=== PATIENT | female | born 2000 | race Caucasian/White ===

== ENCOUNTER 2025-04-30 11:39 | Emergency (ER) | payer SELFPAY ==
[2025-04-30] VITALS (10 sets, daily range): BP systolic 111–148; BP diastolic 55–94; PULSE 69–852; RESP 13–18; TEMP 36.7–36.9; O2SAT 96–100; BMI 43.9
--- NOTE | ~2025-04-30 | US_ITS ---
EXAMINATION: US OBSTETRICAL ULTRASOUND CLINICAL INFORMATION: Status post miscarriage with bleeding. 24-year-old female. History of 2 ectopic pregnancies since tubal ligation. COMPARISON: None available. LMP: Unknown.. TECHNIQUE: Ultrasound of the maternal pelvis is performed using transabdominal and transvaginal transducers. Transvaginal imaging is performed due to inadequate visualization transabdominally. FINDINGS: The uterus measures 10.4 x 4.1 cm in sagittal plane. A transverse diameter was not measured. The endometrium appears thickened and somewhat irregular, measuring 13 mm. This likely on the basis of blood products as there is no vascularity associated. No gestational sac is evident. No evidence of decidual reaction. No gross myometrial abnormalities. No masses. The cervix is unremarkable. MATERNAL ADNEXA: The right maternal ovary measures 4.7 x 2.1 x 2.2 cm. Normal sonographic appearance. The left maternal ovary measures 3.9 x 2.2 x 2.3 cm. There is a corpus luteal cyst measuring 2.2 x 1.4 x 1.5 cm. There is no significant maternal adnexal mass. No maternal pelvic ascites. US/US OB pelvic and transvaginal IMPRESSION: 1. Thickened endometrium likely represent blood products measuring up to 13 mm. No evidence of gestational sac or IUP. 2. No myometrial abnormalities. 3. Normal-appearing ovaries without adnexal masses. No evidence of ectopic . 4. No significant pelvic ascites present. Electronically signed by: Dom Ladd MD 04/30/2025 01:22 PM [facility]
[2025-04-30 12:21] LABS: Appearance Urine Clear; Glucose Urine UA Negative (Negative); PH 6.0 (5.0-9.0); Specific Gravity - Urine 1.025 (1.005-1.025); UMIC TRIGGER UACC YES
--- NOTE | 2025-04-30 12:25 | ED_ITS ---
HPI - Female Genitourinary General Chief complaint: Vaginal Bleeding Stated complaint: MISCAR LAST WK/VAG BLEED,SMOKED CRACK/WANTS DETOX Time Seen by Provider: 04/30/25 11:42 Source: patient and EMS Mode of arrival: EMS Limitations: no limitations History of Present Illness ED Provider: HPI Narrative: 24-year-old woman from [place], has been in [facility] for the past 4 days visiting her friend, she states for the past 4 days she has been using crack cocaine including this morning and yesterday use some type of the substance that made her feel nauseated and states since then has had decreased p.o. intake, does not typically use opiates, states has not really use crack cocaine for the past 10 years but under lot of stress and she is experiencing homelessness, she reports that a proximally 1-1/2-2 weeks ago she has had a miscarriage she passed what she thought as products of conception, unsure of how far along she was at that point, and states that has been having vaginal bleeding initially it stopped but then restarted 3 days ago and states that she is passing heavy clots in sure if she is having a normal. It is heavier than usual, reports history of diabetes and hypotension and has not been using her medications in some time as well. No SI or HI, does have history of self cutting last time when she was 16 years old. Interested in detox, gave this provider crack pipe along with what was likely small tube of fentanyl. Related Data Previous Rx's ?Medication ?Instructions ?Recorded cephalexin 500 mg capsule 500 mg PO BID 7 days #14 cap s 04/30/25 ferrous sulfate 325 mg (65 mg 325 mg PO DAILY #30 tabs 04/30/25 iron) tablet (iron) medroxyprogesterone 10 mg tablet 10 mg PO DAILY 7 days #7 tabs 04/30/25 (Provera) Allergies Allergy/AdvReac Type Severity Reaction Status Date / Time ondansetron (From Zofran) Allergy Anaphylaxis Verified 04/30/25 12:04 Review of Systems 2 Constitutional: Constitutional: Reports as per [facility] Past Medical History Medical History (Updated 04/30/25 @ 14:30 by Tavo Franco MD) Hypertension Diabetes type 2 History of PID History of ectopic Surgical History (Updated 04/30/25 @ 14:30 by Tavo Franco MD) History of tubal ligation Social History Social History Alcohol intake: current Alcohol intake frequency: 3 or more drinks per day Smoked in Last 30 Days: Yes Use of substances other than those prescribed or required for medical reasons: Yes Substance Use Type: Crack/Cocaine Substance Use Frequency: Recent Binge Last Used Substance: Days (ago) Advance Directives: No Advance Directives Information Provided: No Physical Exam 2 Exam: Exam: ?General: ??looks age appropriate, somewhat anxious ?PERRLA, EOMI, MMM, no facial trauma no oral trauma Neck: Supple, no LAD ?CV: RRR, no obvious murmurs appreciated ?Resp: ?No wheezing rales rhonchi no stridor moving air well Abd: ?Bowel sounds are present, no tenderness no rebound no rigidity : No significant vaginal bleeding, os is closed, no CMT MSK: FROM, strength 5/5 all extremities Skin: Warm, dry, intact, ?Neuro: ?Alert and oriented x3, moving upper and lower extremities symmetrically, no obvious facial asymmetry noted, cranial nerves 2-12 intact Psych: Anxious, no SI or HI Vital Signs: Vital Signs: Last Vital Signs Temp 98.0 F 04/30/25 15:17 Pulse 97 04/30/25 16:00 Resp 13 04/30/25 16:00 BP 112/66 04/30/25 16:00 Pulse Ox 97 04/30/25 16:00 O2 Del Method Room Air 04/30/25 16:00 BMI result Body Mass Index 43.9 Medications Administered Discontinued Medications Generic Name Dose Route Start Last Admin Trade Name Freq PRN Reason Stop Dose Admin Diphenhydramine HCl 25 mg 04/30/25 12:27 04/30/25 13:46 Diphenhydramine Hcl 50 Mg/Ml Vial IVPUSH 04/30/25 12:28 25 mg ONCE ONE Administration Sodium Chloride 1,000 mls @ 999 mls/hr 04/30/25 12:30 04/30/25 15:04 Ns IV 04/30/25 13:30 Infused .Q1H1M GLADIS Infusion Ceftriaxone Sodium 1 gm/ 50 mls @ 100 mls/hr 04/30/25 14:00 04/30/25 15:04 Sodium Chloride IV 04/30/25 14:29 Infused ONCE ONE Infusion Medroxyprogesterone Acetate 10 mg 04/30/25 14:23 04/30/25 16:03 Medroxyprogesterone Acetate 5 Mg Tablet PO 04/30/25 14:24 10 mg ONCE ONE Administration Metoclopramide HCl 5 mg 04/30/25 12:27 04/30/25 13:46 Metoclopramide Hcl 10 Mg/2 Ml Vial IVPUSH 04/30/25 12:28 5 mg ONCE ONE Administration Medical Decision Making Medical Decision Making MDM Narrative: 12:57 PM 04/30/2025 (Dr. Roman Juarez): Patient experiencing homelessness, polysubstance use, reports vaginal bleeding in the setting of a she reports prior miscarriage, we will obtain ultrasound to evaluate for retained products of conception, pelvic examination however is reassuring no vaginal bleeding, os is closed, benign abdominal exam No SI or HI, we will check urine tox, will refer to recovery team once medically clear She does not use IV drugs so bacteremia is unlikely 1:58 PM 04/30/2025 (Dr. Roman Juarez): It looks like patient has iron- deficiency anemia, we will add on iron panel, MCV is 74, hemoglobin 7.3, her ultrasound listed below, to me a reveals likely normal findings consistent with ongoing. , I did reach out to Dr. Franco from social work associate just to see what his impression regarding the ultrasound, overall I am reassured by her exam, she is not actively hemorrhaging and has a closed os. And negative which makes the fact that she actually had miscarriage much less likely because the numbers would be still elevated she does not appear to have a UTI and because patient is meeting septic criteria will give IV antibiotics, though my suspicion that she was tachycardic due to anxiety, with fluids her heart rate is improving 2:27 PM 04/30/2025 (Dr. Roman Juarez): I spoke with Dr. Franco who evaluated the patient at bedside, actually 2 weeks ago she has had ectopic treated with methotrexate this is what she was describing as miscarriage, we spoke about her management he obtained swabs for PID, and recommended Provera 10 mg for 90 days, and stated that it is reasonable to give her 1 unit of PRBC as she has limited access to healthcare I do not think it is unreasonable I spoke to the patient and we will provide her with 1 unit, she states she has been anemic since her but she was not on iron supplements due to insurance issues. Overall I feel that after blood transfusion, fluids, patient can be medically cleared to speak to social service technician and recovery 4:51 PM 04/30/2025 (Dr. Roman Juarez): I had social service technician speak to the patient, patient will be staying with a friend and Iveth in the short term, and she declined detox referrals and wanted outpatient support, Differential Diagnosis Differential Diagnoses: The differential diagnosis associated with the presentation includes (Dysfunctional uterine bleeding, ectopic , retained products of conception, SI, HI, substance use disorder) Admission/Observation Consideration of admission/observation: Escalation of care including admission/observation considered Consult Healthcare Provider Management of the patient was discussed with: Behavioral Health Provider Lab Data MDM Lab Attestation statement: I reviewed the patient's lab results. 04/30/25 12:41 04/30/25 12:41 Labs: Lab Results 04/30/25 04/30/25 04/30/25 Range/Units 12:11 12:40 12:41 WBC 11.7 H (4.8-10.8) X10*3/uL RBC 3.39 L (4.20-5.50) X10*6/uL Hgb 7.3 L (12.0-16.0) g/dl Hct 25.3 L (37.0-47.0) % MCV 74.6 L (80.0-98.0) fL MCH 21.5 L (27.0-33.0) pg MCHC 28.9 L (31.0-35.0) g/dl RDW 16.7 H (11.0-16.0) % Plt Count 320 (160-400) X10*3/uL MPV 9.7 (9.4-12.3) fL Immature Gran % (Auto) 0.4 (0.0-0.4) % Neut % (Auto) 80.4 H (45-73) % Lymph % (Auto) 13.6 L (20-40) % [place] % (Auto) 5.0 (2-11) % Eos % (Auto) 0.3 (0-4) % Baso % (Auto) 0.3 (0-2) % Lymph # (Auto) 1.6 (1.2-4.9) X10*3/uL [place] # (Auto) 0.6 (0.1-1.2) X10*3/uL Eos # (Auto) 0.0 (0.0-0.4) X10*3/uL Baso # (Auto) 0.0 (0.0-0.2) X10*3/uL Abs Immat Gran (auto) 0.05 H (0.00-0.03) X10*3/uL Absolute Neuts (auto) 9.4 H (2.0-8.3) x10*3/uL Absolute Nucleated RBC 0.000 (0.0-0.012) X10*3/uL Nucleated RBC % (auto) 0.0 (0.0-0.2) /100WBC Sodium 142 (135-145) mmol/L Potassium 4.0 (3.3-5.1) mmol/L Chloride 109 H (96-108) mmol/L Carbon Dioxide 26 (22-29) mmol/L Anion Gap 11 L (12-20) BUN 12 (9-16) mg/dL Creatinine 0.62 (0.5-1.4) mg/dL Estim Creat Clear Calc 159.7 Estimated GFR > 60 Random Glucose 117 H (60-115) mg/dL Calcium 8.8 (8.4-10.2) mg/dL Iron 14 L (30-160) mcg/dL TIBC 309 (228-428) mcg/dL % Saturation 5 L (15-50) % Unsat Iron Binding 295 ug/dL Total Bilirubin 0.2 (0.0-1.0) mg/dL AST 23 (5-31) U/L ALT 21 (0-31) U/L Alkaline Phosphatase 136 H (39-117) U/L Total Protein 6.9 (6.5-8.0) g/dL Albumin 3.9 (3.5-5.0) g/dL Beta HCG, Quant < 2 mIU/mL Urine Color Yellow Urine Appearance Clear Urine pH 6.0 (5.0-9.0) Ur Specific [place] 1.025 (1.005-1.025) Urine Protein 30 (1+) H (Neg-Trace) mg/dL Urine Glucose (UA) Negative (Negative) mg/dL Urine Ketones 15 (Negative) mg/dL Urine Blood Large (3+) H (Negative) Urine Nitrite Positive H (Negative) Ur Leukocyte Esterase Trace H (Negative) Urine RBC 3-5 H (0-2) /HPF Urine WBC 6-10 (0-5) /HPF Ur Squamous Epith Cells 3-5 (0-2) /HPF Urine Bacteria 3+ (None Seen) Hyaline Casts 0-2 (0-2) /LPF Urine Opiates Screen POSITIVE H (Not Detect) Ur Buprenorphine Scrn Not Detected (Not Detect) ng/mL Ur Oxycodone Screen Not Detected (Not Detect) ng/mL Urine Methadone Screen Not Detected (Not Detect) ng/mL Urine Fentanyl Screen POSITIVE H (Not Detect) Ur Barbiturates Screen Not Detected (Not Detect) Ur Phencyclidine Scrn Not Detected (Not Detect) Ur Amphetamines Screen Not Detected (Not Detect) U Benzodiazepines Scrn Not Detected (Not Detect) Urine Cocaine Screen POSITIVE H (Not Detect) U Marijuana (THC) Screen POSITIVE H (Not Detect) Ethyl Alcohol < 10 mg/dL Chlam trachomat DNA PCR (Not Detect.) N.gonorrhoeae DNA (PCR) (Not Detect.) T. vaginalis (PCR) (Not Detect) Bact vaginosis (PCR) (Negative) C. krusei/glabrata (PCR) (Not Detect) Jennifer group (PCR) (Not Detect) Blood Type A Positive Antibody Screen NEGATIVE Crossmatch See Detail 04/30/25 Range/Units 14:31 WBC (4.8-10.8) X10*3/uL RBC (4.20-5.50) X10*6/uL Hgb (12.0-16.0) g/dl Hct (37.0-47.0) % MCV (80.0-98.0) fL MCH (27.0-33.0) pg MCHC (31.0-35.0) g/dl RDW (11.0-16.0) % Plt Count (160-400) X10*3/uL MPV (9.4-12.3) fL Immature Gran % (Auto) (0.0-0.4) % Neut % (Auto) (45-73) % Lymph % (Auto) (20-40) % [place] % (Auto) (2-11) % Eos % (Auto) (0-4) % Baso % (Auto) (0-2) % Lymph # (Auto) (1.2-4.9) X10*3/uL [place] # (Auto) (0.1-1.2) X10*3/uL Eos # (Auto) (0.0-0.4) X10*3/uL Baso # (Auto) (0.0-0.2) X10*3/uL Abs Immat Gran (auto) (0.00-0.03) X10*3/uL Absolute Neuts (auto) (2.0-8.3) x10*3/uL Absolute Nucleated RBC (0.0-0.012) X10*3/uL Nucleated RBC % (auto) (0.0-0.2) /100WBC Sodium (135-145) mmol/L Potassium (3.3-5.1) mmol/L Chloride (96-108) mmol/L Carbon Dioxide (22-29) mmol/L Anion Gap (12-20) BUN (9-16) mg/dL Creatinine (0.5-1.4) mg/dL Estim Creat Clear Calc Estimated GFR Random Glucose (60-115) mg/dL Calcium (8.4-10.2) mg/dL Iron (30-160) mcg/dL TIBC (228-428) mcg/dL % Saturation (15-50) % Unsat Iron Binding ug/dL Total Bilirubin (0.0-1.0) mg/dL AST (5-31) U/L ALT (0-31) U/L Alkaline Phosphatase (39-117) U/L Total Protein (6.5-8.0) g/dL Albumin (3.5-5.0) g/dL Beta HCG, Quant mIU/mL Urine Color Urine Appearance Urine pH (5.0-9.0) Ur Specific [place] (1.005-1.025) Urine Protein (Neg-Trace) mg/dL Urine Glucose (UA) (Negative) mg/dL Urine Ketones (Negative) mg/dL Urine Blood (Negative) Urine Nitrite (Negative) Ur Leukocyte Esterase (Negative) Urine RBC (0-2) /HPF Urine WBC (0-5) /HPF Ur Squamous Epith Cells (0-2) /HPF Urine Bacteria (None Seen) Hyaline Casts (0-2) /LPF Urine Opiates Screen (Not Detect) Ur Buprenorphine Scrn (Not Detect) ng/mL Ur Oxycodone Screen (Not Detect) ng/mL Urine Methadone Screen (Not Detect) ng/mL Urine Fentanyl Screen (Not Detect) Ur Barbiturates Screen (Not Detect) Ur Phencyclidine Scrn (Not Detect) Ur Amphetamines Screen (Not Detect) U Benzodiazepines Scrn (Not Detect) Urine Cocaine Screen (Not Detect) U Marijuana (THC) Screen (Not Detect) Ethyl Alcohol mg/dL Chlam trachomat DNA PCR NOT DETECTED (Not Detect.) N.gonorrhoeae DNA (PCR) NOT DETECTED (Not Detect.) T. vaginalis (PCR) NOT DETECTED (Not Detect) Bact vaginosis (PCR) NEGATIVE (Negative) C. krusei/glabrata (PCR) NOT DETECTED (Not Detect) Jennifer group (PCR) NOT DETECTED (Not Detect) Blood Type Antibody Screen Crossmatch Independent Interpretation I performed an independent interpretation of an: Ultrasound Radiology Impression Discussion of test interpretation with radiology: I have reviewed the radiologist's reading. ( US/US OB pelvic and transvaginal IMPRESSION: 1. Thickened endometrium likely represent blood products measuring up to 13 mm. No evidence of gestational sac or IUP. 2. No myometrial abnormalities. 3. Normal-appearing ovaries without adnexal masses. No evidence of ectopic pregnan) Critical Care Time Critical Care Time Critical Care Time: Yes Total Critical Care Time: 60 Attestation: Time is exclusive of separately billable procedures. Time includes: direct patient care, patient reassessment, coordination of patient care, interpretation of data (laboratory data, pulse oximetry, arterial blood gases and chest xrays), review of patient's medical records, medical consultation and documentation of patient care. Procedures excluded from critical care time: central intravenous line placement and electrocardiography. Discharge Plan Discharge Clinical Impression: Dysfunctional uterine bleeding, Microcytic anemia Instructions: Abnormal (Dysfunctional) Uterine Bleeding (ED) Additional Instructions: You were provided outpatient resources by our care team Provera 10 mg daily as recommended by printed circuit board designer Iron supplements daily You received 1 unit of red blood cells due to being anemic, you do have iron- deficiency anemia There was also has some evidence for urine tract infection you received antibiotics for the day continue antibiotics starting tomorrow If you decide you want to stop or cut down on how much you?re using, you can call or walk into our outpatient Addiction Treatment office: [facility] (M-F 9am-5p) [address], [address] [phone] You may have been provided with safer injection?items, please take time to take care of YOU and your health. Use new supplies whenever possible to lessen the chances of infections and other illnesses.? ?If you need more supplies, please go [facility],? [address] [place] [address] OR you can call or text to coordinate delivery of safer supplies. You were also provided a list of several treatment providers in the area.? If you experience any worsening symptoms you cannot control please return to the ED or call 911. Please follow up at your next appointment. Things to look out for are fevers, chest pain, shortness of breath, severe pain, dizziness, fainting or any other concerns. Prescriptions: New cephalexin 500 mg capsule 500 mg PO BID 7 Days Qty: 14 0RF medroxyprogesterone [Provera] 10 mg tablet 10 mg PO DAILY 7 Days Qty: 7 0RF ferrous sulfate [iron] 325 mg (65 mg iron) tablet 325 mg PO DAILY Qty: 30 0RF Print Language: Rwandan
[2025-04-30 12:36] LABS: Cannabinoid Screen Urine POSITIVE (Not Detect)
[2025-04-30 12:41] LABS: UACC Culture Trigger YES
[2025-04-30 12:45] LABS: MANUAL DIFF FLAG NO
[2025-04-30 12:58] LABS: Hematocrit 25.3 % (37.0-47.0); Hemoglobin 7.3 g/dl (12.0-16.0); Imm Gran Abs Auto 0.05 X10*3/uL (0.00-0.03); Imm Gran Pct Auto 0.4 % (0.0-0.4); Lymphocytes Absolute Auto 1.6 X10*3/uL (1.2-4.9); Mean Corpuscular HGB Conc 28.9 g/dl (31.0-35.0); Mean Corpuscular Hemoglobin 21.5 pg (27.0-33.0); Mean Corpuscular Volume 74.6 fL (80.0-98.0); NRBC Abs Auto 0.000 X10*3/uL (0.0-0.012); NRBC Pct Auto 0.0 /100WBC (0.0-0.2); Platelet Count 320 X10*3/uL (160-400); Red Blood Count 3.39 X10*6/uL (4.20-5.50); White Blood Count 11.7 X10*3/uL (4.8-10.8)
[2025-04-30 13:10] LABS: Alanine Aminotransferase 21 U/L (0-31); Albumin Level 3.9 g/dL (3.5-5.0); Alkaline Phosphatase 136 U/L (39-117); Anion Gap 11 (12-20); Aspartate Amino Transferase 23 U/L (5-31); Blood Urea Nitrogen 12 mg/dL (9-16); Calcium 8.8 mg/dL (8.4-10.2); Carbon Dioxide 26 mmol/L (22-29); Chloride 109 mmol/L (96-108); Creatinine Clr Calc Pharmacy 159.7; Estimated Glomerular Filt Rate > 60; Potassium 4.0 mmol/L (3.3-5.1); Sodium 142 mmol/L (135-145); Total Protein 6.9 g/dL (6.5-8.0)
--- NOTE | 2025-04-30 14:25 | P.CONOB_ITS ---
CAN FILLING ROOM SWEEPER - CN: HPI Data of Consult Consult date: 04/30/25 Primary Care Provider: None Physician Consult Narrative Narrative: I was consulted on Mare Anglin is a 24 year old female presenting to emergency room with 3 day history of heavy vaginal bleeding associated with passage of blood clots. Uterus tubal ligation 2 years ago. The patient developed 2 months ago ectopic status post methotrexate. The patient is passing by [place] is not a permanent resident in [facility] and planning to get out of state soon. History of hypertension and diabetes type 2 off her medication History of polysubstance abuse. The following workup was done in the emergency room: H&H 7.3.3 HCG less than 2 Urine tox screen positive for opiates, fentanyl, cocaine and marijuana Pelvic ultrasound showed the following: IMPRESSION: 1. Thickened endometrium likely represent blood products measuring up to 13 mm. No evidence of gestational sac or IUP. 2. No myometrial abnormalities. 3. Normal-appearing ovaries without adnexal masses. No evidence of ectopic . 4. No significant pelvic ascites present. cc:: CC: OB [facility] Past Medical History Medical History (Updated 04/30/25 @ 14:30 by Tavo Franco MD) Hypertension Diabetes type 2 History of PID History of ectopic Surgical History Surgical History (Updated 04/30/25 @ 14:30 by Tavo Franco MD) History of tubal ligation Social History Social History Alcohol intake: current Alcohol intake frequency: 3 or more drinks per day Smoked in Last 30 Days: Yes Use of substances other than those prescribed or required for medical reasons: Yes Substance Use Type: Crack/Cocaine Substance Use Frequency: Recent Binge Last Used Substance: Days (ago) Advance Directives: No Advance Directives Information Provided: No Meds Allergies Allergy/AdvReac Type Severity Reaction Status Date / Time ondansetron (From Zofran) Allergy Anaphylaxis Verified 04/30/25 12:04 Active Medications: Current Medications Ceftriaxone Sodium 1 gm/ (Sodium Chloride) 50 mls @ 100 mls/hr IV ONCE ONE Stop: 04/30/25 14:29 Last Admin: 04/30/25 14:23 Dose: 100 mls/hr CAN FILLING ROOM SWEEPER Physical Exam Vitals Vital signs: Temp Pulse Resp BP Pulse Ox O2 Del Method 98.2 F 85 16 120/55 L 100 Room Air 04/30/25 11:49 04/30/25 13:56 04/30/25 13:56 04/30/25 13:56 04/30/25 13:56 04/30/25 13:56 BMI result Body Mass Index 43.9 Female Genitalia (Pelvic) Bladder/Urethra: Normal meatus Vulva: No lesions Vagina: Nontender Cervix: Grossly normal and No cervical motion tenderness Uterus: Normal size Adnexa/Parametria: Adnexal Tenderness: None, Adnexal Mass: None, Parametrial Tenderness: None and Parametrial Mass: None Additional Comments: Minimal blood per vagina, no evidence of active vaginal bleeding CAN FILLING ROOM SWEEPER - Results Labs 04/30/25 12:41 04/30/25 12:41 Labs: Short CBC 04/30/25 Range/Units 12:41 WBC 11.7 H (4.8-10.8) X10*3/uL Hgb 7.3 L (12.0-16.0) g/dl Hct 25.3 L (37.0-47.0) % Plt Count 320 (160-400) X10*3/uL BMP 04/30/25 12:41 Sodium 142 Potassium 4.0 Chloride 109 H Carbon Dioxide 26 BUN 12 Creatinine 0.62 Calcium 8.8 Liver Function 04/30/25 Range/Units 12:41 Total Bilirubin 0.2 (0.0-1.0) mg/dL AST 23 (5-31) U/L ALT 21 (0-31) U/L Alkaline Phosphatase 136 H (39-117) U/L Albumin 3.9 (3.5-5.0) g/dL Urine 04/30/25 Range/Units 12:11 Urine Color Yellow Urine Appearance Clear Urine pH 6.0 (5.0-9.0) Ur Specific [place] 1.025 (1.005-1.025) Urine Protein 30 (1+) H (Neg-Trace) mg/dL Urine Glucose (UA) Negative (Negative) mg/dL Antibody Screen Antibody Screen NEGATIVE 04/30/25 12:40 Assessment and Plan (1) Abnormal uterine bleeding (AUB): Status: Acute GC/CT with BV panel taken Recommended to Dr. Owens the following: Transfuse 1 unit of packed RBCs, start medroxyprogesterone acetate 10 mg p.o. q.d. for 90 days Instructions to be given to the patient to follow up with her statement clerk dora for endometrial biopsy to rule out endometrial pathology including hyperplasia and /or malignancy, tocome back to emergency room in case of persistence or heavy vaginal bleeding, fever above before or pelvic pain
[2025-04-30 14:33] LABS: Iron 14 mcg/dL (30-160); Percent Iron Saturation 5 % (15-50); Total Iron Binding Capacity 309 mcg/dL (228-428); Unsaturated Iron Binding 295 ug/dL
--- NOTE | 2025-04-30 15:35 | MHC.CM.ED ---
Pt is requesting help with getting back to [place]. CM explained that CM has no resources to pay for her transportation to [place]. Pt understands. [facility] listing given. Explained to patient that CARE team would see her regarding DETOX options. Explained to patient that she needs to reach out to her family for help. CARE is aware of patient. Will see her when she is medically cleared.
[2025-04-30 15:36] LABS: Bacterial Vaginosis PCR NEGATIVE (Negative); Candida Group PCR NOT DETECTED (Not Detect); Candida glab krusei PCR NOT DETECTED (Not Detect); Trichomonas vaginalis PCR NOT DETECTED (Not Detect)
[2025-04-30 16:14] LABS: CT PCR NOT DETECTED (Not Detect.); NG PCR NOT DETECTED (Not Detect.)
== END 2025-04-30 18:33 | disposition home or self-care (01) ==
PROVIDERS: Obstetrics & Gynecology; Emergency Provider Emergency Medicine
DX: O00.90 Unspecified ectopic pregnancy without intrauterine pregnancy (principal); O08.1 Delayed or excessive hemorrhage following ectopic and molar pregnancy; N93.8 Other specified abnormal uterine and vaginal bleeding; D64.9 Anemia, unspecified; F11.90 Opioid use, unspecified, uncomplicated; R10.22 Pelvic and perineal pain left side; R11.0 Nausea; F14.90 Cocaine use, unspecified, uncomplicated; F43.9 Reaction to severe stress, unspecified; F12.90 Cannabis use, unspecified, uncomplicated; Z51.81 Encounter for therapeutic drug level monitoring; Z79.899 Other long term (current) drug therapy; Z59.00 Homelessness unspecified
CPT/HCPCS: 36415; 76801; 76817; 80053; 80307; 81001; 81515; 83540; 84702; 85025; 86850; 86900; 86901; 86923; 87086; 87147; 87491; 87591; 96361; 96365; 96375; 99284; J0696; J1200; J2765; P9016; S9485

== ENCOUNTER → 2025-04-30 12:26 | Outpatient (BNV) | payer SELFPAY | PROVIDERS: Emergency Provider Emergency Medicine; Visit Provider Radiology Diagnostic Radiology | DX: O03.9 Complete or unspecified spontaneous abortion without complication (principal); N85.00 Endometrial hyperplasia, unspecified | CPT/HCPCS: 76801; 76817 ==